=== PATIENT | female | born 1985 | race Caucasian/White ===

== ENCOUNTER 2019-03-01 05:40 | Inpatient (IN) ==
--- NOTE | 2019-02-23 13:25 | PAT Medication Instructions ---
Medication Instructions Date of Service February 23, 2019 Home Medications calcium carbonate 200 mg calcium (500 mg) chewable tablet 200 mg PO QID PRN PNV cmb#95-ferrous fumarate-FA [] 1 tab PO DAILY acetaminophen [Tylenol] 325 mg PO UD PRN DO NOT take the morning of surgery calcium carbonate 200 mg calcium (500 mg) chewable tablet 200 mg PO QID PRN PNV cmb#95-ferrous fumarate-FA [] 1 tab PO DAILY Take morning of surgery With a small sip of water, OTHERWISE NOTHING TO EAT OR DRINK AFTER MIDNIGHT: acetaminophen [Tylenol] 325 mg PO UD PRN (okay to take up to 4 hours prior to surgery if needed) Other Notes If you have any questions please call us at [phone] or [phone] or [phone] or [phone]
--- NOTE | 2019-02-24 09:27 | Anesthesiology Consultation ---
Date of Service February 24, 2019 Assessment & Plan (1) Encounter for pre-operative examination: - No preop labs: per OB, no labs to be drawn at [facility]. Ordered for AM DOS. Antibody screen negative 12/15/18 at [facility]* Chart Review Chart Review: Acceptable Risk for Surgery (pending labs AM DOS) and Patient seen in Pre Admission Testing Teaching & Discussion Pre-Anesthesia Teaching/Discussion Notes: Instructed NPO after midnight before surgery,except medications with 15 cc of water. Medication instructions provided according to the [facility] guidelines. History Surgery Operation Date: 03/01/19 07:30 Proposed Procedures p Section in LD - Laurel Hernandez MD, FACOG Height/Weight Height: 5 ft 10 in Weight: 80.6 kg Allergies Allergy/AdvReac Type Severity Reaction Status Date / Time No Known Drug Allergies Allergy Verified 02/24/19 08:43 Medications Home Medications Medication Instructions Recorded Confirmed Last Taken calcium carbonate 200 mg calcium 200 mg PO QID PRN tab 01/13/19 02/24/19 Unknown (500 mg) chewable tablet PNV cmb#95-ferrous fumarate-FA 1 tab PO DAILY 02/17/19 02/24/19 Unknown [] acetaminophen [Tylenol] 325 mg PO UD PRN 02/17/19 02/24/19 Unknown Past Medical History Medical History Levoscoliosis Heartburn in TMJ arthritis Exercise / Class Metabolic Activity III < 4 Walking/Shop/Light housework Past Family History Family History Father Diabetes Mother Thyroid disease Dyslipidemia Other Breast cancer Past Surgical History Surgical History History of c/s (2/2 arrest of descent/failure to progress): 05/28/15: per anesthesia progress note: "She had a pre-existing epidural catheter placed earlier today for labor analgesia but my exam showed a minimal sensory level. I therefore pulled the catheter and performed a spinal [done at L3-L4]. Her anesthetic course was uneventful." Good perioperative pain control per patient. History of colonoscopy History of tooth extraction WISDOM TEETH Past Anesthesia History No Hx of Anesthesia Complications and No Family Hx of Anesthesia Complications History of PONV No Hx of PONV and Hx of Motion Sickness Social History Smoking Status: Never smoker Do You Dip or Chew Tobacco: No Hx Alcohol Use: No Hx Substance Use: No substance use type: does not use Review of Systems related reflux. Occasional back pain. URI symptoms improving. Patient denies chest pain, shortness of breath, dyspnea on exertion, joint pain, reflux, palpitations. Physical Exam Vital Signs VITALS BP 101/70 P 92 TEMP 98.5 SP02 97%RA RESP 16 PHYSICAL Full neck and c-spine range of motion. Full TMJ range of motion. TMD 3.5 finger breaths Mallampati Score 2 Dentition: intact Lungs: clear throughout to auscultation Cardiac: regular rate and rhythm, no murmurs noted Spine: normal Extremities: no edema Testing Laboratory Results 08/06/18 T&S A-Ab- 12/15/18 T&S Antibody screen negative
--- NOTE | 2019-02-24 09:42 | History and Physical Report ---
DATE OF ADMISSION: 03/01/2019 DIAGNOSES ON ADMISSION: 1. Intrauterine at 39 and 0/7 weeks. 2. History of previous section. 3. Rh negative. HISTORY OF PRESENT ILLNESS: The patient is a 3, para 1-0-1-1 with an EDC of 03/08/2019 based on a first trimester ultrasound, this is slightly different than her LMP. She presents today for repeat section. Her first was complicated for a section for a 9-pound 7-ounce baby at 40 and 4/7 weeks. She declines trial of labor. She declines tubal ligation. Her has been uncomplicated. She has had good movement. LABORATORY DATA: She is A negative, antibody negative, Pap normal, rubella immune, syphilis negative, hepatitis B negative, HIV negative, chlamydia and gonorrhea negative, cystic fibrosis screen negative, spinal muscular atrophy screen negative. Panorama, low-risk female. She received RhoGAM on 12/15/2018. GBS is negative. ALLERGIES: No known drug allergies. MEDICATIONS: vitamin. PAST MEDICAL HISTORY: The patient is healthy. She denies thyroid disease, heart disease, heart murmur, diabetes, kidney or liver problems. She does have a history of an ulcer in her small intestine. PAST SURGICAL HISTORY: Includes wisdom teeth removal and section. PAST OB AND SUPERVISOR ELECTRIC MOTOR TESTING HISTORY: This is the patient's third . In August of 2015, she had a at 40 and 4. In December of 2017, she had an ectopic , treated with methotrexate. 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 Denies history of sexually transmitted illnesses. Her glucose tolerance test in November was 119 mg per deciliter, normal. She did not have a 16-week GTT. PHYSICAL EXAMINATION: GENERAL: This is a well-developed, well-nourished white female, in no acute distress. VITAL SIGNS: Blood pressure 122/70, weight 177.3 pounds. NECK: Supple without thyromegaly or lymphadenopathy. CHEST: Clear to auscultation bilaterally. CARDIOVASCULAR: Regular rate and rhythm without murmurs, gallops or rubs. ABDOMEN: Soft, gravid and nontender. EXTREMITIES: Show trace edema, but are otherwise benign. PELVIC: Deferred. ASSESSMENT: Indy is a 33-year-old white female 3, para 1-0-1-1 with a due date of 03/08/2019 who presents on March 01 for a repeat section. She declines trial of labor as well as tubal sterilization. The risks of the surgery were discussed with the patient including the risks of anesthesia, bleeding requiring transfusion, infection and poor wound healing, damage to surrounding structures including bowel, bladder, vessels, nerves and ureters with need for further surgery, hospitalization or intervention. Also, discussed the small but possible injury to the baby as well as the other risks associated with any surgery including heart attack, blood clot, stroke or . Questions were asked and answered. Consent was reviewed and signed and surgery is planned for 03/01.
[2019-03-01] MEDS ORDERED: LACTATED RINGER'S 1,000 ML IV SCH ×3 (05:45→08:30)
[2019-03-01] MEDS ORDERED: CEFAZOLIN 2,000 MG in SYRINGE 0 ML IV SCH (06:00)
[2019-03-01] MEDS ORDERED: CITRIC ACID/SODIUM CITRATE 15 ML UDC PO SCH ×2 (06:00)
[2019-03-01 06:01] LABS: Basophils # (auto) 0.03 K/uL (0-0.2); Basophils % (auto) 0.3 %; Hematocrit (blood only) 34.1 % (37-47); Hemoglobin 11.9 g/dL (12.0-16.0); Immature Granulocytes # (auto) 0.24 K/uL (0.00-0.02); Immature Granulocytes % (auto) 2.3 %; Lymphocytes # (auto) 2.31 K/uL (1.2-3.4); Lymphocytes % (auto) 22.1 %; Mean Corpuscular Hemoglobin 31.6 pg (25-34); Mean Corpuscular Volume 90.7 fL (80-100); Monocytes # (auto) 1.09 K/uL (0.11-0.59); Monocytes % (auto) 10.4 %; Neutrophils % (auto) 63.9 %; Platelet Count 158 K/uL (130-400); RDW Coefficient of Variation 13.3 % (11.5-14.5); RDW Standard Deviation 43.8 fL (36.4-46.3); Red Blood Count 3.76 M/uL (4.2-5.4); White Blood Count 10.47 K/uL (4.8-10.8)
[2019-03-01 06:07] LABS: Mean Corpuscular Hgb Conc 34.9 g/dL (32-36)
[2019-03-01] MEDS ORDERED: INFLUENZA VIRUS QUAD VACCINE 0.5 ML SYR IM ONE (06:45)
[2019-03-01] MEDS ORDERED: INFLUENZA ADMINISTRATION CHARGE ONE (06:45)
[2019-03-01] MEDS ORDERED: OXYTOCIN 10 UNITS/ML VIAL ONE (06:57)
[2019-03-01] MEDS ORDERED: fentaNYL citrate 100 MCG/2 ML VIAL ONE (06:58)
[2019-03-01] MEDS ORDERED: MoRPHine SULFATE PF 1 MG/ML 10 ML AMP/VIAL ONE (06:58)
[2019-03-01] MEDS: LACTATED RINGER'S 1,000 ML IV SCH (06:58)
--- NOTE | 2019-03-01 07:32 | History & Physical Bridge Note ---
Date of Service March 01, 2019 History & Physical Bridge Note I have examined the patient, reviewed the History & Physical and in the interval since the performance of the History & Physical I have noted the following changes of clinical significance: no changes noted
[2019-03-01] MEDS ORDERED: ePHEDrine sulfate 50 MG/ML SYR ONE (08:09)
[2019-03-01] MEDS ORDERED: PHENYLEPHRINE 100MCG/ML 5ML SYR ONE (08:09)
[2019-03-01] MEDS ORDERED: ONDANSETRON INJ 2 MG/ML 2 ML VIAL ONE (08:09)
[2019-03-01] MEDS ORDERED: MoRPHine SULFATE 2 MG/ML CARP IV PRN (08:11)
[2019-03-01] MEDS ORDERED: NALOXONE HCL 0.08 MG in SYRINGE 1.8 ML IV PRN (08:11)
[2019-03-01] MEDS ORDERED: ONDANSETRON INJ 2 MG/ML 2 ML VIAL IV PRN (08:11)
[2019-03-01] MEDS ORDERED: ePHEDrine sulfate 50 MG/ML AMP IV PRN ×2 (08:11)
[2019-03-01] MEDS ORDERED: MoRPHine SULFATE PF 1 MG/ML 10 ML AMP/VIAL INT SPINAL ONE (08:11)
[2019-03-01] MEDS ORDERED: NALOXONE HCL 1 MG in SODIUM CHLORIDE 0.9% 1000ML 1,000 ML IV PRN (08:11)
[2019-03-01] MEDS ORDERED: ATROPINE SULFATE 0.1 MG/ML 10ML SYR IV PRN (08:11)
[2019-03-01] MEDS ORDERED: DiphenhydrAMINE HCL 50 MG/ML VIAL IV PRN (08:11)
[2019-03-01] MEDS ORDERED: NALBUPHINE HCL INJ 10 MG/ML AMP IV PRN (08:11)
[2019-03-01] MEDS ORDERED: LACTATED RINGER'S 500 ML IV PRN (08:11)
[2019-03-01] MEDS ORDERED: NALOXONE HCL 0.4 MG/1 ML VIAL/CARP IV PRN (08:11)
[2019-03-01] MEDS ORDERED: NO NARCOTICS OR SEDATIVES SCH (08:15)
[2019-03-01] MEDS ORDERED: DC INTRASPINAL MORPHINE SCH (08:15)
[2019-03-01] MEDS ORDERED: SODIUM CHLORIDE 0.9% 1000ML 1,000 ML IV SCH (08:15)
[2019-03-01] MEDS ORDERED: DIPHTHERIA/TETANUS/PERTUSSIS 0.5 ML SYR/VIAL IM ONE (08:24)
[2019-03-01] MEDS ORDERED: HYDROCORTISONE ACETATE 25 MG SUPP PR PRN (08:24)
[2019-03-01] MEDS ORDERED: SENNA 8.6 MG TAB PO PRN (08:24)
[2019-03-01] MEDS ORDERED: BENZOCAINE 20% AER SPR 82.5 GM CAN EXT PRN (08:24)
[2019-03-01] MEDS ORDERED: MAGNESIUM HYDROXIDE SUSP 30 ML UDC PO PRN (08:24)
[2019-03-01] MEDS ORDERED: SUPERCREAM 0.870% 15 GM JAR EXT PRN (08:24)
--- NOTE | 2019-03-01 08:34 | Post Operative Brief Note ---
PG Immediate Post Op with CF Date of Surgery March 01, 2019 Pre & Post Diagnosis Operation Date: 03/01/19 07:30 Pre-Op Diagnosis: at 39 weeks; History of Previous caesarean section;Desires Repeat Post-Op Diagnosis: Same;Delivery of a live female child at 0803 I identified the patient and participated in the time-out.: Yes Procedure Operation Date: 03/01/19 07:30 Actual Procedures p repeat lower transverese Section in LD - Laurel Hernandez MD, FACOG Surgeon Laurel Hernandez MD, FACOG Driller Machine Dr. Watson, PGY 1 and Edil Barker, MS 2 Estimated Blood Loss 500 Findings Consistent with Post-Op Diagnosis Specimens Specimen Description: A. placenta-hold B. cord blood Drains Sheehan Catheter
--- NOTE | 2019-03-01 09:01 | Anesthesiology Progress Note ---
Date of Service March 01, 2019 Anesthesia Post Procedure Vital Signs Vital Signs: Temp Pulse Resp BP Pulse Ox 03/01/19 09:00 94 H 122/68 03/01/19 08:55 86 99 03/01/19 08:50 82 122/64 100 03/01/19 08:45 88 99 03/01/19 08:40 84 123/66 99 03/01/19 05:50 36.6 C 104 H 18 122/80 Transfer of Care Handoff Completed per policy Notes Mental Status: alert / awake / arousable and participated in evaluation Patient Amnestic to Procedure: Yes Nausea / Vomiting: adequately controlled Pain: adequately controlled Airway Patency, RR, SpO2: stable & adequate BP & HR: stable & adequate Hydration State: stable & adequate Neuraxial Anesthesia: was administered and sensory block is resolving Anesthetic Complications: no major complications apparent and Pt Satisfied with anesthetic care
--- NOTE | 2019-03-01 09:08 | Operative Report ---
DATE OF OPERATION: 03/01/2019 PREOPERATIVE DIAGNOSES: 1. Intrauterine at 39 weeks. 2. History of previous section, desires repeat. POSTOPERATIVE DIAGNOSES: 1. Intrauterine at 39 weeks. 2. History of previous section, desires repeat. PROCEDURE: Repeat lower transverse section. SURGEON: Laurel Hernandez MD ASSISTANTS: Reed Watson, PGY-1 and Edil Barker MS-2. ANESTHESIA: Spinal. ESTIMATED BLOOD LOSS: 500 mL. INTRAVENOUS FLUIDS: 1500 mL. URINE OUTPUT: 300 mL of clear yellow urine drained from the bladder at the end of the procedure. INDICATIONS: The patient is 3, para 1-0-1-1 with a history of a previous section and desires repeat. She declines trial of labor. FINDINGS: Viable female in cephalic presentation, Apgars 8 and 9. Normal uterus, tubes, and ovaries were noted bilaterally. COMPLICATIONS: None. DRAINS: Sheehan. DISPOSITION: To recovery room in stable condition. DESCRIPTION OF PROCEDURE: The patient was taken to the operating room where she was identified verbally and by bracelet. She was seated on the operating table where a spinal anesthetic was placed. She was then placed in the dorsal supine position with a leftward tilt. A Sheehan catheter was placed sterilely. She was prepped and draped in normal sterile fashion. Her anesthetic was tested and found to be adequate. A time-out was done identifying correct patient, procedure and preoperative antibiotics. There were no concerns. The patient's previous Pfannenstiel incision has keloids, so this skin incision was removed with the knife. The knife was then used to take down to the underlying layer of fascia. The fascia was incised in the midline with the knife taken out laterally with scissors. The superior edge of the fascial incision was grasped, elevated and the underlying layer of rectus muscle was taken off bluntly and with scissors. In a similar fashion, the inferior edge of the fascial incision was grasped, elevated and the underlying layer of rectus muscle was taken off bluntly and with scissors. The muscles were in the midline bluntly. The peritoneum was entered bluntly and was taken sharply with good visualization of the bladder with scissors. The incision was stretched. The bladder blade was placed. The vesicouterine peritoneum was identified, grasped with a snap, entered with scissors. The bladder flap was created laterally with scissors and then was finished bluntly. The bladder blade was replaced. Hysterotomy incision was scored with a knife. The amniotic sac was entered with a snap. Clear fluid was noted. The incision was stretched with the para machine operator's fingers. The para machine operator's hand was gently placed in the hysterotomy incision. The head was delivered through this using fundal pressure. Nose and mouth were bulb suctioned. The rest of the infant was then delivered without difficulty. The baby was vigorous. The nose and mouth were again bulb suctioned. The cord was clamped and cut. The infant was handed off to waiting pediatricians for drying and attention. Cord blood and segment were obtained. The placenta was manually extracted. The uterus was exteriorized and cleared of all clot and debris with moistened laparotomy sponges. Hysterotomy incision was repaired in 2 layers, the first in a running locked layer and second in an imbricating layer of 0 Vicryl. One otisen-rl-[id number] suture of 0 Vicryl was required in the midline for some bleeding. The posterior cul-de-sac was then irrigated and cleared of all clot and debris. The hysterotomy incision was again inspected and found to be hemostatic. The uterus was reanteriorized. The hysterotomy incision was again inspected and found to be hemostatic. Rectus muscles were reapproximated in the midline with several interrupted sutures of 0 Vicryl. Fascia was reapproximated starting at the corners and meeting in the midline with 0 Vicryl. The subcuticular tissue was copiously irrigated and bleeding was attended to with Bovie electrocautery and the skin was closed with 4-0 Vicryl in subcuticular fashion. All sponge, lap and needle counts were correct x2. The patient tolerated the procedure well and was taken to recovery room in stable condition. I attest to the content of the Intraoperative Record and any orders documented therein. Any exceptions are noted below. TREVON
[2019-03-01] MEDS: OXYTOCIN 20 UNITS in LACTATED RINGER'S 1,000 ML IV SCH ×2 (09:16→17:20)
[2019-03-01] MEDS: KETOROLAC 30 MG/ML VIAL IV PRN ×3 (09:35→21:12)
[2019-03-01] MEDS ORDERED: COUGH DROP (SUGAR FREE) LOZ 24 LOZ/1 BOX BUCCAL ONE (09:49)
[2019-03-01] MEDS: SIMETHICONE 80 MG CHEW PO SCH ×2 (17:14→21:44)
[2019-03-01] MEDS: DOCUSATE SODIUM 100 MG CAP PO SCH (21:44)
[2019-03-02] MEDS: LACTATED RINGER'S 1,000 ML IV SCH (01:28)
[2019-03-02] MEDS ORDERED: MEPERIDINE HCL 50 MG/ML CARP IV PRN (02:13)
[2019-03-02] MEDS ORDERED: DiphenhydrAMINE HCL 50 MG/ML VIAL IV PRN (02:13)
[2019-03-02] MEDS ORDERED: KETOROLAC 30 MG/ML VIAL IV PRN (02:13)
[2019-03-02] MEDS ORDERED: ONDANSETRON INJ 2 MG/ML 2 ML VIAL IV PRN (02:13)
[2019-03-02] MEDS ORDERED: PROMETHAZINE HCL 25 MG in SODIUM CHLORIDE 0.9% 50 ML IV PRN (02:13)
--- NOTE | 2019-03-02 05:59 | Obstetrical Progress Note ---
Date of Service March 02, 2019 Assessment & Plan (1) : 33 yo s/p rC/S @ 39w - POD# 1 - GBS negative, Blood Type A- - Feels well today. Eating well, voiding well, ambulating well. - Pain well controlled. - Routine post operative care - After discharge will have [address] Hernandez. Supervising Physician Co-Signing Physician Notes Resident Physician Supervision Note: I was present with Dr. Watson during the history and exam. I discussed the case with the resident and agree with the findings and plan as documented in the note. Any exceptions or clarifications are listed here: POD#1 doing well. Routine postop care. Documented By: Anali Terry, DO Subjective Doing well this morning. She has the Sheehan in place and has eaten crackers w/o nausea. Her pain is well controlled. No questions or concerns this morning. Review of Systems Review of Systems: Denies fever, chills, sweats Denies shortness of breath, difficulty breathing, chest pain, palpitations, chest pressure. Denies breast pain. Denies headache. Physical Exam Physical Exam: General: Alert, oriented. No acute distress. Cardiac: Regular rate and rhythm, no murmurs/rubs/gallops. Respiratory: Clear to auscultation anterior and posteriorly, no wheezes/rales/rhonchi. No increased work of breathing. Symmetrical chest rise. No respiratory distress. Abdomen: Soft, nontender, nondistended. Bowel sounds present. Uterus: Uterine fundus firm, palpable 1 cm below umbilicus. Lower Extremities: No lower extremity edema or swelling. No deep calf pain. Perla's negative bilaterally. surgical incision intact, clean, dry. No warmth, erythema, discharge, or dehiscence. Results & Data Vital Signs (Past 12 Hours) Vital Signs Temp Pulse Resp BP Pulse Ox 03/02/19 04:15 36.8 C 88 18 123/77 96 03/02/19 03:40 16 95 03/02/19 02:15 18 97 03/02/19 01:15 16 95 03/02/19 00:05 36.9 C 83 18 110/69 96 03/01/19 23:10 18 94 03/01/19 20:00 36.8 C 89 16 118/76 93 03/01/19 19:00 18 95 03/01/19 18:00 18 94 PG Care Time/CCT Total # of Minutes Spent Total Time Spent with Patient: Total time spent is greater than 50% in coordination of care (as documented) at patient's floor/unit and/or counseling patient: Resident Activity Tracking Resident Involvement: Resident Care Provided Care Provided: OB Delivery
[2019-03-02 06:09] LABS: Basophils # (auto) 0.02 K/uL (0-0.2); Basophils % (auto) 0.1 %; Eosinophils # (auto) 0.09 K/uL (0-0.5); Eosinophils % (auto) 0.6 %; Hematocrit (blood only) 31.2 % (37-47); Hemoglobin 10.7 g/dL (12.0-16.0); Immature Granulocytes # (auto) 0.18 K/uL (0.00-0.02); Immature Granulocytes % (auto) 1.2 %; Lymphocytes # (auto) 1.81 K/uL (1.2-3.4); Lymphocytes % (auto) 11.7 %; Mean Corpuscular Hemoglobin 31.3 pg (25-34); Mean Corpuscular Hgb Conc 34.3 g/dL (32-36); Mean Corpuscular Volume 91.2 fL (80-100); Mean Platelet Volume 10.7 fL (7.4-10.4); Monocytes # (auto) 0.81 K/uL (0.11-0.59); Monocytes % (auto) 5.2 %; Neutrophils # (auto) 12.61 K/uL (1.4-6.5); Neutrophils % (auto) 81.2 %; Platelet Count 149 K/uL (130-400); RDW Coefficient of Variation 13.4 % (11.5-14.5); Red Blood Count 3.42 M/uL (4.2-5.4); White Blood Count 15.52 K/uL (4.8-10.8)
[2019-03-02] MEDS: IBUPROFEN 600 MG TAB PO PRN ×4 (06:10→19:58)
[2019-03-02] MEDS: OXYCODONE/ACETAMINOPHEN 5mg/325mg TAB PO PRN ×4 (06:10→19:57)
[2019-03-02] MEDS: SIMETHICONE 80 MG CHEW PO SCH ×5 (08:54→19:59)
[2019-03-02] MEDS: DOCUSATE SODIUM 100 MG CAP PO SCH ×2 (08:55→19:59)
[2019-03-02] MEDS: FERROUS SULFATE 325 MG TAB PO SCH (08:55)
[2019-03-02] MEDS: PRENATAL VITAMIN 1 TAB PO SCH (08:55)
--- NOTE | 2019-03-02 10:23 | Anesthesiology Progress Note ---
Date of Service March 02, 2019 Anesthesia Post Procedure Vital Signs Vital Signs: Temp Pulse Pulse Resp BP BP Pulse Ox 03/02/19 09:24 36.6 C 86 18 118/72 97 03/02/19 09:00 36.6 C 86 18 118/72 97 03/02/19 04:15 36.8 C 88 18 123/77 96 03/02/19 03:40 16 95 03/02/19 02:15 18 97 03/02/19 01:15 16 95 03/02/19 00:05 36.9 C 83 18 110/69 96 03/01/19 23:10 18 94 03/01/19 20:00 36.8 C 89 16 118/76 93 03/01/19 19:00 18 95 03/01/19 18:00 18 94 03/01/19 17:00 16 96 03/01/19 16:00 18 98 03/01/19 15:15 36.8 C 79 16 124/73 98 03/01/19 15:00 18 96 03/01/19 13:00 18 98 03/01/19 12:00 36.6 C 82 20 115/67 98 03/01/19 11:00 36.6 C 82 20 117/76 96 03/01/19 10:54 94 H 90 03/01/19 10:50 84 99 03/01/19 10:45 83 97 03/01/19 10:40 85 125/79 98 03/01/19 10:35 83 98 03/01/19 10:30 86 99 03/01/19 10:25 82 98 Pain Intensity Bilateral Abdomen: Pain Intensity: 3 Transfer of Care Handoff Completed per policy Notes Mental Status: alert / awake / arousable Patient Amnestic to Procedure: Yes Nausea / Vomiting: adequately controlled Pain: adequately controlled Airway Patency, RR, SpO2: stable & adequate BP & HR: stable & adequate Hydration State: stable & adequate Neuraxial Anesthesia: was administered and sensory block resolved Anesthetic Complications: no major complications apparent and Pt Satisfied with anesthetic care
[2019-03-02] MEDS ORDERED: bisacodyL 5 MG TABEC PO SCH (20:00)
[2019-03-03] MEDS: IBUPROFEN 600 MG TAB PO PRN ×2 (05:07→10:42)
[2019-03-03] MEDS: OXYCODONE/ACETAMINOPHEN 5mg/325mg TAB PO PRN ×2 (05:09→10:42)
--- NOTE | 2019-03-03 06:10 | Obstetrical Progress Note ---
Date of Service March 03, 2019 Assessment & Plan (1) : 33 yo s/p rC/S @ 39w - POD# 2 - GBS negative, Blood Type A- - Feels well today. Eating well, voiding well, ambulating well. - Working on pain control today. - Routine post operative care - After discharge will have [address] Hernandez. Supervising Physician Co-Signing Physician Notes Resident Physician Supervision Note: I interviewed and examined the patient. Discussed with Dr. Watson and agree with findings and plan as documented in the note. Any exceptions or clarifications are listed here: [None] Documented By: Georgie Mccall MD, FACOG Subjective Mom and baby Little are doing well this morning. Pain is a little more intense this morning at a 4-5/10 but she had not taken any pain medication while sleeping, but the pain is minimal with pain medication onboard. Bleeding is improved and only spotting today. is going, "fine." She was wondering when they would be able to go home. No other questions or concerns today. Review of Systems Review of Systems: Denies fever, chills, sweats Denies shortness of breath, difficulty breathing, chest pain, palpitations, chest pressure. Denies breast pain. Denies headache. Physical Exam Physical Exam: General: Alert, oriented. No acute distress. Cardiac: Regular rate and rhythm, no murmurs/rubs/gallops. Respiratory: Clear to auscultation anterior and posteriorly, no wheezes/rales/rhonchi. No increased work of breathing. Symmetrical chest rise. No respiratory distress. Abdomen: Soft, nontender, nondistended. Bowel sounds present. Uterus: Uterine fundus firm, palpable 1 cm below umbilicus. Lower Extremities: No lower extremity edema or swelling. No deep calf pain. Perla's negative bilaterally. surgical incision: intact, clean, dry. No warmth, erythema, discharge, or dehiscence. Results & Data Vital Signs (Past 12 Hours) Vital Signs Temp Pulse Resp BP 03/03/19 00:20 36.7 C 71 18 102/64 03/02/19 19:40 36.8 C 87 16 115/76 PG Care Time/CCT Total # of Minutes Spent Total Time Spent with Patient: Total time spent is greater than 50% in coordination of care (as documented) at patient's floor/unit and/or counseling patient: Resident Activity Tracking Resident Involvement: Resident Care Provided Care Provided: OB Delivery
[2019-03-03 06:25] LABS: Hematocrit (blood only) 31.1 % (37-47); Hemoglobin 10.6 g/dL (12.0-16.0)
[2019-03-03] MEDS: SIMETHICONE 80 MG CHEW PO SCH (07:34)
[2019-03-03] MEDS: PRENATAL VITAMIN 1 TAB PO SCH (07:34)
[2019-03-03] MEDS: DOCUSATE SODIUM 100 MG CAP PO SCH (07:34)
[2019-03-03] MEDS: FERROUS SULFATE 325 MG TAB PO SCH (07:34)
[2019-03-03] MEDS ORDERED: bisacodyL 10 MG SUPP PR PRN (08:24)
--- NOTE | 2019-03-05 08:14 | Discharge Summary ---
DATE OF ADMISSION: 03/01/2019 DATE OF DISCHARGE: 03/03/2019 ADMISSION DIAGNOSES: 1. Intrauterine at 39 and 0/7 weeks. 2. History of previous section. 3. Rh negative. DISCHARGE DIAGNOSES: 1. Intrauterine at 39 and 0/7 weeks. 2. History of previous section. 3. Rh negative. PROCEDURES: Repeat lower transverse section. HISTORY OF PRESENT ILLNESS: The patient is a 3, para 1-0-1-1 with an EDC of 03/08/2019 based on a first trimester ultrasound that is slightly different from her LMP. She presented for repeat section. Her first was complicated by a section for a 9 pound 7 ounce baby at 40 and 4/7 weeks. She declines trial of labor as well as tubal ligation. Her has been uncomplicated. She has got good movement. For the rest the patient's history and physical, please see her history and physical. ASSESSMENT: Indy is a 33-year-old white female 3, para 1-0-1-1 with a due date of 03/08/2019, who presents at 39 weeks for repeat section. HOSPITAL COURSE: The patient was admitted and she underwent a repeat lower transverse section without difficulty. Estimated blood loss 500 mL. She delivered a viable female in cephalic presentation with Apgars of 8 and 9. Normal uterus, tubes, and ovaries were noted bilaterally. The patient's postoperative course was uncomplicated. She tolerated a regular diet, ambulated without difficulty, voided after the removal of her Sheehan catheter, tolerated oral pain medications. She was discharged home on postoperative day #2 to follow up in 6 weeks. Her discharge H and H was 10.6 and 31.1.
== END 2019-03-03 10:50 | disposition home or self-care (01) | DRG 788 ==
LOC: 4S1 05:40 → EDSTATUS 07:30 → 4S2 11:06